=== PATIENT | male | born 1970 | race Caucasian/White ===

== ENCOUNTER 2019-04-15 19:39 | Inpatient (IN) | payer SELFPAY ==
[~2019-04-15] VITALS: Ht 172.7 cm; Wt 77.1 kg
[2019-04-15 19:58] VITALS: BP 130/80
--- NOTE | 2019-04-15 20:05 | NUR ---
TO LOBBY A/W BED , VIA WHEELCHAIR, EKG DONE AND NOTED BY GARCIA.
--- NOTE | 2019-04-15 20:25 | NUR ---
PT W/C ASSISTED TO BED 12.
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
--- NOTE | 2019-04-15 21:00 | NUR ---
PT IN BED RESTING. VSS. NO DISTRESS OF ANY TYPE NOTED. ALERT TO NAME, PLACE, TIME, EVENT. PAIN 04/13. NO SOB/DYPNEA. CONTINUE TO MONITOR.
--- NOTE | 2019-04-15 22:00 | NUR ---
PT STATES PAIN 7/10 BUT TOLLERABLE. NO SOB/DYSPNEA. NON-RADIATING STERNAL PAIN. VSS. CONTINUE TO MONITOR.
[2019-04-15 23:43] LABS: BASOPHILS # (AUTO) 0.1 K/uL (0.00-0.22); BASOPHILS % (AUTO) 0.7 % (0.0-2.0); EOSINOPHILS # (AUTO) 0.3 K/uL (0-0.4); EOSINOPHILS % (AUTO) 3.6 % (0.0-4.0); HEMATOCRIT 40.7 % (36-52); HEMOGLOBIN 13.5 g/dL (12.0-18.0); LYMPHOCYTES # (AUTO) 2.8 K/uL (2.0-11.5); LYMPHOCYTES % (AUTO) 30.5 % (20.5-51.1); MEAN CORPUSCULAR HEMOGLOBIN 26 pg (27-31); MEAN CORPUSCULAR HGB CONC 33 g/dL (33-37); MONOCYTES # (AUTO) 0.9 K/uL (0.8-1.0); MONOCYTES % (AUTO) 10.3 % (1.7-9.3); NEUTROPHILS # (AUTO) 5.1 K/uL (1.8-7.7); NEUTROPHILS % (AUTO) 54.9 % (42.2-75.2); PLATELET COUNT (AUTO) 257 K/uL (140-450); RED BLOOD CELL COUNT(AUTO) 5.22 MIL/uL (4.20-6.10); RED CELL DISTRIBUTION WIDTH 15.1 % (11.6-13.7); WHITE BLOOD COUNT (AUTO) 9.2 K/uL (4.8-10.8)
[2019-04-16 00:05] LABS: ALBUMIN 3.3 g/dL (3.4-5.0); ANION GAP 13.6 (8-16); CARBON DIOXIDE 27.2 mmol/L (21-32); POTASSIUM 3.8 mmol/L (3.5-5.1); TOTAL BILIRUBIN 0.4 mg/dL (0.0-1.0)
[2019-04-16 00:11] LABS: D-DIMER < 100 ng/ml (0-400)
[2019-04-16 00:16] LABS: PROTHROMBIN TIME 9.4 secs (10.8-13.4)
--- NOTE | 2019-04-16 00:25 | NUR ---
PATIENT TAKEN TO CT WITH KAREN VIA JODIRYONAS.
--- NOTE | 2019-04-16 00:35 | NUR ---
PATIENT RETURN FROM CT.
--- NOTE | 2019-04-16 01:00 | NUR ---
PT IN BED RESTING WITH EYES OPEN. STATES PAIN TOLLERABLE. NO SOB/DYAPNEA. NO N/V. VSS. ER MD AWARE. CONTINUE TO MONITOR.
[2019-04-16] MEDS ORDERED: ACETAMINOPHEN 325 MG TAB PO PRN (01:05)
[2019-04-16] MEDS ORDERED: LORazepam 2 MG/ML VIAL IM/IVP PRN ×2 (01:05→02:10)
[2019-04-16] MEDS ORDERED: ONDANSETRON 4 MG/2 ML VIAL IM/IVP PRN (01:05)
[2019-04-16] MEDS ORDERED: DOCUSATE SODIUM 100 MG GELCAP PO PRN (01:05)
[2019-04-16] MEDS ORDERED: FAMOTIDINE 20 MG/2 ML VIAL IV PRN (01:05)
[2019-04-16 01:47] LABS: ALBUMIN 3.3 g/dL (3.4-5.0); CHOL/HDL RATIO 2.1 (1-4.5); FREE T4 (FREE THYROXINE) 1.09 ng/dL (0.76-1.46); PHOSPHORUS 3.9 mg/dL (2.5-4.9); THYROID STIMULATING HORMONE 1.42 uIU/mL (0.34-3.74)
[2019-04-16 02:00] VITALS: BP 131/90
--- NOTE | 2019-04-16 02:00 | NUR ---
REPORT GIVEN AND CARE TRANSFERED TO LIZANDRO RN ROOM 119A. TRANSFERED VIA GURNEY WITH VSS.
--- NOTE | 2019-04-16 02:00 | NUR ---
RECEIVED REPORT FROM ED NURSE FOR PATIENT'S CONTINUITY OF CARE. PATIENT CAME TO THE UNIT VIA GURNEY. PATIENT IS AWAKE, ALERT, ORIENTED X 4, ON ROOM AIR, HAS 20G RIGHT AC IV SALINE LOCK. SKIN IS INTACT, SINUS TACH ON TELE CARDIAC MONITORING. ADMISSION ASSESSMENT DONE AND CHARTED. VITAL SIGNS ARE FOLLOWS: BP 131/90, TEMP 98.4, P 103, O2 98%, RR 18. BED IS IN LOW POSITION, SIDE RAILS ARE UP, CALL LIGHT WITHIN REACH. WILL MONITOR PATIENT THROUGHOUT SHIFT.
[2019-04-16] MEDS ORDERED: traMADol 50 MG TAB PO PRN (02:05)
[2019-04-16] MEDS ORDERED: NITROGLYCERIN 0.4 MG TAB SL PRN (02:50)
--- NOTE | 2019-04-16 03:00 | NUR ---
INITIATED FALL AND SEIZURE PRECAUTION AND PREVENTION. PATIENT EDUCATION GIVEN AND ACKNOWLEDGED BY PATIENT. VERBALIZED UNDERSTANDING. WILL CONTINUE TO MONITOR PATIENT.
[2019-04-16] MEDS ORDERED: PHENYTOIN 1,000 MG in NACL 0.9% 100 ML IV SCH (04:00)
[2019-04-16] MEDS ORDERED: PHENYTOIN 100 MG/2 ML VIAL IVP SCH (04:00)
--- NOTE | 2019-04-16 04:00 | NUR ---
VITAL SIGNS CHECKED AND CHARTED. ADMINISTERED PO MEDICATIONS, AND HUNG DILANTIN IV, ORDERED BY MD. PATIENT TOLERATED THEM WELL. PATIENT LYING DOWN, DENIES PAIN AT THIS TIME. WILL CONTINUE TO MONITOR PATIENT.
[2019-04-16] MEDS: ASPIRIN 81 MG TAB.CHEW PO SCH (04:37)
[2019-04-16] MEDS: ATORVASTATIN 20 MG TAB PO SCH ×2 (04:37→21:22)
[2019-04-16] MEDS: KETOROLAC 30 MG/ML VIAL IVP SCH ×4 (05:11→23:46)
--- NOTE | 2019-04-16 05:11 | NUR ---
ADMINISTERED IV PUSH MEDICATION ORDERED BY MD. PATIENT TOLERATED IT WELL.
--- NOTE | 2019-04-16 07:10 | NUR ---
ENDORSED PATIENT TO AM SHIFT NURSE, BETTY, FOR PATIENT'S CONTINUITY OF CARE. PATIENT IS LYING DOWN, APPEARS TO BE ASLEEP, WITH NO SIGNS OF DISTRESS.
--- NOTE | 2019-04-16 07:15 | NUR ---
RECEIVED BEDSIDE REPORT FROM MAT CUTTER RN. AOX3, DROWSY BUT RESPONDS APPROPRIATELY TO VOICE. LUNGS CTAB. RRR. DENIES CHEST PAIN/DISCOMFORT, SOB, DIZZINESS/LIGHTHEADEDNESS. STATES HE FEELS "GOOD". NO DIAPHORESIS. IV SITE ON SL. SKIN INTACT. SEIZURE PRECAUTIONS IN PLACE. ALL OTHER SAFETY PRECAUTIONS IN PLACE, WILL CONTINUE TO MONITOR.
[2019-04-16 08:00] VITALS: BP 121/85
[2019-04-16] MEDS: METOPROLOL 25 MG TAB PO SCH ×2 (08:21→21:22)
[2019-04-16] MEDS: LISINOPRIL 5 MG TAB PO SCH (08:22)
--- NOTE | 2019-04-16 08:26 | NUR ---
SCHEDULED MEDICATIONS ADMINISTERED. PT SITTING UP IN BED, WILL EAT BREAKFAST NOW.
[2019-04-16 12:00] VITALS: BP 114/84
[2019-04-16] MEDS: PHENYTOIN 100 MG CAPER PO SCH ×2 (12:15→21:22)
--- NOTE | 2019-04-16 12:18 | NUR ---
SCHEDULED MEDICATIONS ADMINISTERED. STATES TOLERABLE 5/10 CHEST PAIN. NO SOB OR DIZZINESS/LIGHTHEADEDNESS.
--- NOTE | 2019-04-16 14:32 | NUR ---
ASSIST TECH WITH BUBBLE STUDY.
[2019-04-16 16:00] VITALS: BP 110/75
--- NOTE | 2019-04-16 16:28 | NUR ---
PT SLEEPING IN BED, NO S/S DISTRESS. WILL CONTINUE TO MONITOR.
--- NOTE | 2019-04-16 19:23 | NUR ---
ENDORSED POC TO PROGRAM COORDINATOR EXECUTIVE EDUCATION RN. PT IN STABLE CONDITION.
--- NOTE | 2019-04-16 19:24 | NUR ---
RECEIVED REPORT FROM AM NURSE. PT SLEEPING IN BED, BREATHING EQUAL AND UNLABORED. FALL PRECAUTIONS IN PLACE, BED IN LOW POSITION. RIGHT A/C 20G INTACT. URINAL AT BEDSIDE. CALL LIGHT WITHIN REACH.
[2019-04-16 20:00] VITALS: BP 126/89
--- NOTE | 2019-04-16 20:00 | NUR ---
VITALS SIGNS TAKEN. PT AWAKE, ALERT AND ORIENTED, SITTING UP IN BED. PT ASKED IF HE "MISSED BREAKFAST" INFORMED PT AT THAT IT IS 1999. PT PROVIDED JELLO PER REQUEST. PT INFORMED THAT HE IS ON FALL PRECAUTIONS AND TO PLEASE CALL FOR HELP TO AMBULATE TO BATHROOM. PT VERBALIZED UNDERSTANDING.
[2019-04-17] VITALS: BP 118/76
--- NOTE | 2019-04-17 | NUR ---
VITALS TAKEN. PT SITTING UP AWAKE IN BED ON PHONE. PT REFUSED SCHEDULED TORADOL STATING "I'M NOT IN PAIN, I DON'T NEED IT."
[2019-04-17 04:00] VITALS: BP 110/82
--- NOTE | 2019-04-17 04:00 | NUR ---
VITALS TAKEN. PT SLEEPING, BREATHING EQUAL AND UNLABORED.
[2019-04-17] MEDS: PHENYTOIN 100 MG CAPER PO SCH (05:40)
[2019-04-17] MEDS: KETOROLAC 30 MG/ML VIAL IVP SCH ×2 (05:40→11:32)
--- NOTE | 2019-04-17 07:05 | NUR ---
ENDORSED TO AM NURSE FOR CONTINUITY OF CARE. PT IN STABLE CONDITION.
--- NOTE | 2019-04-17 07:06 | NUR ---
RECEIVED BEDSIDE REPORT FROM NIGHT NURSE. PT IS BREATHING UNLABORED AND RESTING IN BED SITTING UP AOX4 WITH NO COMPLAINTS OR CHEST PAIN. PT HAS A RIGHT AC IV THAT IS ASYMPTOMATIC AND PATENT SALINE LOCKED AND FLUSHED. ALL SAFETY MEASURES IN PLACE AND CALL LIGHT WITHIN REACH. PT HAS SZ PRECAUTIONS IN PLACE WITH PADDING ON SIDE RAILS AND INSTRUCTED TO ASK FOR ANY HELP HE MAY NEED.
[2019-04-17 08:00] VITALS: BP 122/88
--- NOTE | 2019-04-17 08:05 | NUR ---
ADMINISTERED MEDICATIONS, PT RESTING IN BED ON PHONE WITH BREATHING UNLABORED DENYING ANY PAIN. PT STATING HE DOES NOT WANT TO RECEIVED ANY TORADOL TODAY OR ANY OTHER PAIN MEDICATION IF POSSIBLE. INFORMED HIM I WILL CONTINUE TO ASSESS HIS PAIN BUT HE DENIES ANY AT THIS TIME.
[2019-04-17] MEDS: ASPIRIN 81 MG TAB.CHEW PO SCH (08:09)
[2019-04-17 08:10] LABS: ANION GAP 15.7 (8-16); CARBON DIOXIDE 24.2 mmol/L (21-32); CREATININE 0.9 mg/dL (0.7-1.3); POTASSIUM 3.9 mmol/L (3.5-5.1)
[2019-04-17] MEDS: METOPROLOL 25 MG TAB PO SCH (08:10)
[2019-04-17] MEDS: LISINOPRIL 5 MG TAB PO SCH (08:11)
[2019-04-17 08:24] LABS: BASOPHILS # (AUTO) 0.1 K/uL (0.00-0.22); BASOPHILS % (AUTO) 0.6 % (0.0-2.0); EOSINOPHILS # (AUTO) 0.4 K/uL (0-0.4); EOSINOPHILS % (AUTO) 3.8 % (0.0-4.0); HEMATOCRIT 43.3 % (36-52); HEMOGLOBIN 14.5 g/dL (12.0-18.0); LYMPHOCYTES # (AUTO) 3.3 K/uL (2.0-11.5); MEAN CORPUSCULAR HEMOGLOBIN 26 pg (27-31); MEAN CORPUSCULAR HGB CONC 33 g/dL (33-37); MEAN CORPUSCULAR VOLUME 78.5 fL (80-94); MONOCYTES # (AUTO) 0.8 K/uL (0.8-1.0); MONOCYTES % (AUTO) 7.9 % (1.7-9.3); NEUTROPHILS # (AUTO) 5.5 K/uL (1.8-7.7); NEUTROPHILS % (AUTO) 54.7 % (42.2-75.2); PLATELET COUNT (AUTO) 255 K/uL (140-450); RED BLOOD CELL COUNT(AUTO) 5.52 MIL/uL (4.20-6.10); RED CELL DISTRIBUTION WIDTH 15.1 % (11.6-13.7)
--- NOTE | 2019-04-17 09:38 | NUR ---
WAS INFORMED BE TELE MONITOR PT HR IS AT 150. ASSESSED PT PT SLEEPING IN BED BREATHING UNLABORED RELAXED, PT AWOKEN AND DENIES ANY DISTRESS OR ABNORMAL FEELINGS. REPLACED TELE STICKERS AND PT HEART RATE NOW READING AT 70-80 ON TELE MONITOR.
--- NOTE | 2019-04-17 09:55 | NUR ---
PATIENT HAS BEEN SCREENED AND CATEGORIZED MODERATE NUTRITION RISK. PATIENT WILL BE SEEN WITHIN 3-5 DAYS OF ADMISSION. 04/18/19-04/20/[address]
--- NOTE | 2019-04-17 11:00 | NUR ---
PT AWAITING RIDE TO COME PICK HIM UP FOR DISCHARGE. NO DISTRESS OR COMPLAINTS
--- NOTE | 2019-04-17 12:10 | NUR ---
PT DISCHARGED WITH ALL PAPERWORK SIGNED AND REVIEWED BY PT. IV REMOVED CATHETER INTACT AND ID BANDS REMOVED AND DISPOSED OF. PT HAS ALL BELONGINGS WITH HIM AND IS TAKING A BUS CURRENTLY PER HIS REQUEST HOME AND WISHES TO WALK HIMSELF OUT OF THE HOSPITAL.
--- NOTE | 2019-04-17 14:14 | NUR ---
PT SOCKS AND T SHIRT FOUND IN ROOM, ATTEMPTED TO CONTACT PATIENT AT [phone] AND LEFT A VOICEMAIL REGARDING PATIENT'S CLOTHING HERE AND IF HE WANTS TO COME PICK THEM UP. Addendum: 04/17/19 at 1429 by Ruben Baker RN *CLARIFICATION CALLED [phone]
[2019-04-17] MEDS ORDERED: PHEN100C3 PO (14:41)
== END 2019-04-17 12:11 | disposition home or self-care (01) | DRG 206 ==
LOC: MED 19:39 → MTU 04-16 01:05
PROVIDERS: ADMIT General Practice; ATTEND General Practice
DX: M94.0 Chondrocostal junction syndrome [Tietze] (principal); E44.1 Mild protein-calorie malnutrition; G40.909 Epilepsy, unspecified, not intractable, without status epilepticus; M16.12 Unilateral primary osteoarthritis, left hip; I51.7 Cardiomegaly; Z85.830 Personal history of malignant neoplasm of bone; Z88.5 Allergy status to narcotic agent; Z91.19 Patient's noncompliance with other medical treatment and regimen; Z86.73 Personal history of transient ischemic attack (TIA), and cerebral infarction without residual deficits; Z68.25 Body mass index [BMI] 25.0-25.9, adult
CPT/HCPCS: 36415; 70450; 71045; 80048; 80053; 80185; 82040; 82150; 83036; 83605; 83690; 83735; 83880; 84100; 84134; 84439; 84443; 84484; 85025; 85379; 85610; 85730; 87081; 93005; 99285; J1165; J1885; J7030; Q0092

== ENCOUNTER 2019-11-14 14:51 | Emergency (ER) | payer MEDICAID ==
[~2019-11-14] VITALS: Ht 175.3 cm; Wt 81.6 kg
[~2019-11-14 14:51] MED LIST: PHEN100C3 PO
[2019-11-14 15:09] VITALS: BP 143/88
--- NOTE | 2019-11-14 15:19 | NUR ---
49 Y/O MALE PRESENT WITH LEFT HAND FINGER LACERATION, THUMB & INDEX FINGER. PT WAS CUTTING WOOD IN HOME AND SLICED BOTH FINGERS. PAIN 8/10, SHARP, RADIATING TO HAND. ROM IN TACT. FINGER IS WRAPPED AND BLEEDING CONTROLLED AT THIS TIME. NUMBNESS NEAR LACERATION AREAS. RADIAL PULSE +2 IN LEFT ARM. CAP REFILL <3. AAOX4 PMH: SEIZURES ALLERGIES; MORPHINE
[2019-11-14] MEDS ORDERED: BACITRACIN OINT 500 UNITS/GM PKT TP ONE ×2 (15:56→16:05)
[2019-11-14] MEDS: IBUPROFEN 600 MG TAB PO ONE (16:00)
--- NOTE | 2019-11-14 16:06 | NUR ---
APPLIED NONADHERENT DRESSING TO LEFT 1ST AND 2ND DIGIT WIHTOUT ANY ISSUES
[2019-11-14 16:09] VITALS: BP 143/88
--- NOTE | 2019-11-14 16:09 | NUR ---
Patient discharged with v/s stable. Written and verbal after care instructions given and explained. Patient alert, oriented and verbalized understanding of instructions. Ambulatory with steady gait. All questions addressed prior to discharge. ID band removed. Patient advised to follow up with PMD. Rx of BACITRACIN, IBUPROFEN given. Patient educated on indication of medication including possible reaction and side effects. Opportunity to ask questions provided and answered.
== END 2019-11-14 16:09 | disposition home or self-care (01) ==
LOC: MED 14:51
DX: S60.312A Abrasion of left thumb, initial encounter (principal); I10 Essential (primary) hypertension; F17.210 Nicotine dependence, cigarettes, uncomplicated; Z88.5 Allergy status to narcotic agent; Z79.899 Other long term (current) drug therapy; W22.8XXA Striking against or struck by other objects, initial encounter; Y93.89 Activity, other specified; Y92.89 Other specified places as the place of occurrence of the external cause; Y99.8 Other external cause status
CPT/HCPCS: 99283

== ENCOUNTER 2021-09-03 21:35 | Emergency (ER) | payer MEDICAID, OTHER ==
[~2021-09-03] VITALS: Ht 172.7 cm; Wt 77.1 kg
[2021-09-03 21:59] VITALS: BP 174/108
--- NOTE | 2021-09-03 22:43 | NUR ---
Alexia bender in ED - 09/03/21 at 2243 by MEDGJ PT AMBULATED WITH CANE TO BED #11
--- NOTE | 2021-09-03 22:43 | NUR ---
AMBULATED TO ER BED 11
--- NOTE | 2021-09-03 22:57 | NUR ---
Dr. Lafleur examining patient.
[2021-09-03] MEDS ORDERED: METH-1681 PO (23:10)
[2021-09-03] MEDS ORDERED: ACET-8386 PO (23:10)
[2021-09-03] MEDS ORDERED: IBUP-2213 PO (23:10)
[2021-09-03] MEDS ORDERED: HYDROcodone/APAP 5/325 MG 1 TAB TAB PO ONE (23:10)
--- NOTE | 2021-09-03 23:33 | NUR ---
PATIENT CLEARED FOR DISCHARGE AT THIS TIME WITH NO FURTHER COMPLAINTS OR CONCERNS FOLLOWING DISHCARGE TEACHING. ADVISED TO FOLLOW UP WITH PCP AND RETURN IF CONDITION WORSENS.
[2021-09-03 23:35] VITALS: BP 134/81
== END 2021-09-03 23:33 | disposition home or self-care (01) ==
LOC: MED 21:35
DX: G89.29 Other chronic pain (principal); M25.551 Pain in right hip; M25.552 Pain in left hip
CPT/HCPCS: 99283